=== PATIENT | male | born 1990 ===

== ENCOUNTER 2019-01-29 05:51 | Emergency (ER) | payer SELFPAY ==
[2019-01-29 06:10] VITALS: BP 115/81
--- NOTE | 2019-01-29 08:22 | Emergency Department Report ---
HPI - General Chief Complaint: Upper Respiratory Infection Time Seen by Provider: 01/29/19 07:58 - HPI HPI: 28-year-old male presents to the emergency department with a 2 day history of a subjective fever, a mixed dry and productive cough and some nasal congestion. His daughter was recently diagnosed with influenza. He has not taken anything for her symptoms prior to presentation. He has not actually checked his temperature at home but says he feels warm inside. No recent travel. No past medical history. No primary care physician. ED Past Medical Hx - Past Medical History Previous Medical History?: No - Surgical History Past Surgical History?: No - Social History Smoking Status: Current Every Day Smoker Substance Use Type: Alcohol ED Review of Systems ROS: Stated complaint: COLD SYMPTOMS Other details as noted in HPI Comment: All other systems reviewed and negative Constitutional: fever (subjective). denies: chills Eyes: denies: eye pain, vision change ENT: congestion. denies: ear pain Respiratory: cough. denies: shortness of breath Cardiovascular: denies: chest pain, palpitations Gastrointestinal: denies: abdominal pain, vomiting Genitourinary: denies: dysuria Musculoskeletal: myalgia. denies: joint swelling Neurological: denies: headache, weakness Physical Exam - Physical Exam Vital Signs: Vital Signs 01/29/19 05:55 Temperature 99.3 F Pulse Rate 102 H Respiratory 18 Rate Blood Pressure 115/81 O2 Sat by Pulse 96 Oximetry Physical Exam: GENERAL: The patient is well-developed well-nourished. HENT: Normocephalic. Atraumatic. Patient has moist mucous membranes. Oropharynx is clear without tonsillar appears to be, erythema or exudates. Clear bilateral nasal passages. EYES: Extraocular motions are intact. Pupils equal reactive to light bilaterally. NECK: Supple. Trachea is midline. CHEST/LUNGS: Clear to auscultation. No cough heard during examination. There is no respiratory distress noted. HEART/CARDIOVASCULAR: Regular. There is no tachycardia. There is no murmur. ABDOMEN: Abdomen is soft, nontender. Patient has normal bowel sounds. There is no abdominal distention. SKIN: Skin is warm and dry. NEURO: The patient is awake, alert, and oriented. The patient is cooperative. Normal speech. MUSCULOSKELETAL: There is no tenderness or deformity. There is no limitation range of motion. There is no evidence of acute injury. ED Course Vital Signs 01/29/19 05:55 Temperature 99.3 F Pulse Rate 102 H Respiratory 18 Rate Blood Pressure 115/81 O2 Sat by Pulse 96 Oximetry ED Medical Decision Making - Radiology Data Radiology results: image reviewed interpreted by me: Chest x-ray does not show any acute process. There are no pleural effusions, obvious pneumonia and there is no pneumothorax. - Medical Decision Making This patient presents with a 2 day history of subjective fever, an occasional cough and just general complaints of feeling ill. His vital signs are essentially within normal limits including being afebrile. A chest x-ray was done that does not show any pneumonia, pleural effusions, focal consolidation, or any other acute process. Despite the fact that his daughter was recently diagnosed with culture positive influenza, the patient was negative on rapid flu test. The patient is on the outer limits of when using Tamiflu is acceptable anyways. Patient has a viral syndrome and/or viral URI. We discussed using Tylenol and ibuprofen, using weight-based dosing, as needed for any fever or discomfort. He has been given referrals for local primary care physicians and clinics. He has been instructed to return to the emergency Department with any worsening of his symptoms or any acute distress. - Differential Diagnosis pneumonia, influenza, viral URI Critical Care Time: No Critical care attestation.: If time is entered above; I have spent that time in minutes in the direct care of this critically ill patient, excluding procedure time. ED Disposition Clinical Impression: Viral syndrome Upper respiratory infection Qualifiers: URI type: unspecified viral URI Qualified Code(s): J06.9 - Acute upper respiratory infection, unspecified Disposition: DC-01 TO HOME OR SELFCARE Is pt being admited?: No Condition: Stable Instructions: Upper Respiratory Infection (ED), Viral Syndrome (ED) Additional Instructions: Please follow-up with a primary care physician in the next few days. Return to the emergency Department with any worsening of your symptoms or any acute distress. You can use Tylenol every 4-6 hours and ibuprofen every 6-8 hours, using weight- based dosing on the back of the bottle, as needed for any fever or discomfort. Referrals: WILMAN MEJÍA MD [Staff Physician] - 2-3 Days [facility] [Outside] - 2-3 Days Time of Disposition: 09:14 Print Language: INDONESIAN
--- NOTE | 2019-01-29 09:11 | XRay Report ---
CHEST 2 VIEWS INDICATION / CLINICAL INFORMATION: cough. COMPARISON: None available. FINDINGS: SUPPORT DEVICES: None. HEART / MEDIASTINUM: No significant abnormality. LUNGS / PLEURA: There are low lung volumes bilaterally. No focal infiltrate is seen. No pleural effus ion is seen..No pneumothorax. ADDITIONAL FINDINGS: No significant additional findings. IMPRESSION: 1. No acute findings. Signer Name: Adebayo Zamudio MD Signed: 01/29/2019 9:07 AM Workstation Name: [id number]
== END 2019-01-29 09:23 | disposition home or self-care (01) ==
LOC: ED 05:51
DX: J06.9 Acute upper respiratory infection, unspecified (principal); F17.200 Nicotine dependence, unspecified, uncomplicated; F10.10 Alcohol abuse, uncomplicated
CPT/HCPCS: 71046; 87400